=== PATIENT | male | born 1965 | race Caucasian/White ===

== ENCOUNTER 2018-11-12 08:55 | Day surgery (SDC) | payer OTHER ==
[2018-11-09 14:12] LABS: HEMATOCRIT 45.6 % (42.0-54.0); HEMOGLOBIN 15.7 g/dL (13.5-17.5); MCH 29.7 pg (26.0-34.0); MCHC 34.4 g/dL (31.0-37.0); MCV 86.2 fL (80.0-100.0); MEAN PLATELET VOLUME 10.3 fL (7.4-10.4); RBC 5.29 10x6/uL (4.20-6.10); RDW 14.5 % (11.5-14.5); WBC 9.2 10x3/uL (4.8-10.8)
[2018-11-09 14:29] LABS: CALC OSMOLALITY 276 mosm/kg (275-300); CALCIUM 9.1 mg/dL (8.5-10.1); CARBON DIOXIDE 29.6 mmol/L (21.0-32.0); CHLORIDE - SERUM 102 mmol/L (98-107); GLUCOSE 80 mg/dL (74-106); POTASSIUM - SERUM 3.6 mmol/L (3.5-5.1); SODIUM 138 mmol/L (136-145); UREA NITROGEN 17 mg/dL (7-18); eGFR NON AFRICAN AMERICAN 83 mL/min (90-120)
[~2018-11-12] VITALS: Ht 177.8 cm; Wt 114.8 kg
[~2018-11-12 08:55] MED LIST: COZAAR100 MG PO; HYDROCHLOROTHIA25 MG PO; TESTOST CYP INJ 200
[2018-11-12 09:58] VITALS: BP 137/88; Ht 177.8 cm; Wt 114.8 kg
[2018-11-12] MEDS ORDERED: FLOMAX0.4 MG PO (15:16)
[2018-11-12] MEDS ORDERED: HYDROCODON-ACE1 EAC7 PO (15:16)
--- NOTE | 2018-11-12 18:52 | NUR ---
1820 IV REMOVED MEDICATED FOR PAIN PRIOR TO LEAVING PER REQUEST.
--- NOTE | 2018-11-12 18:52 | NUR ---
1830 INSTRUCTIONS GIVEN TO PT AND
== END 2018-11-12 18:40 | disposition home or self-care (01) ==
LOC: D.OPS 08:55 → D.PAN 13:15 → D.OPS 13:15
PROVIDERS: Anesthesiology; ATTEND Surgery
DX: K40.20 Bilateral inguinal hernia, without obstruction or gangrene, not specified as recurrent (principal); Z01.812 Encounter for preprocedural laboratory examination